=== PATIENT | female | born 2000 | race Caucasian/White ===

== ENCOUNTER 2022-05-01 18:33 | Emergency (ER) | payer OTHER ==
[2022-05-01 19:38] LABS: ESTIMATED GFR 131 mL/min (>60)
== END 2022-05-01 20:09 | disposition home or self-care (01) ==
LOC: FB.ED 18:33
DX: R10.10 Upper abdominal pain, unspecified (principal)
CPT/HCPCS: 36415; 80053; 81001; 83690; 85025; 99284

== ENCOUNTER 2024-08-12 22:51 | Emergency (ER) | payer OTHER ==
[2024-08-12] MEDS ORDERED: LORazepam 2 MG/ML SDV IVPUSH ONE (23:38)
[2024-08-13] MEDS: LORazepam 2 MG/ML SDV IVPUSH ONE (00:06)
[2024-08-13] MEDS: Sodium Chloride 0.9% 1,000 ML IV SCH ×2 (00:10→01:28)
[2024-08-13 00:23] LABS: BASOPHILS PERCENT AUTO 0.3 % (0.2-1.5); EOSINOPHILS PERCENT AUTO 0.5 % (0.6-8.1); HEMOGLOBIN 12.5 g/dL (11.4-15.5); LYMPHOCYTES ABSOLUTE AUTO 2.6 x10-3/uL (1.0-4.4); LYMPHOCYTES PERCENT AUTO 31.3 % (18.4-52.1); MEAN CORPUSCULAR HGB CONC 34.6 g/dL (31.9-34.8); MEAN CORPUSCULAR VOLUME 83.9 fL (76.7-100.5); MONOCYTES ABSOLUTE AUTO 0.6 x10-3/uL (0.3-1.0); MONOCYTES PERCENT AUTO 7.1 % (4.4-15.7); NEUTROPHILS PERCENT AUTO 60.8 % (30.8-76.2); PLATELET COUNT,PLT 238 x10(3)uL (151-488); RED BLOOD CELL COUNT 4.29 x10(6)uL (3.60-5.20); RED CELL DISTRIBUTION WIDTH 13.2 % (12.3-16.5); WHITE BLOOD CELL COUNT,WBC 8.2 x10-3/uL (3.0-10.3)
[2024-08-13 00:24] LABS: BLOOD UREA NITROGEN,BUN 15 mg/dL (7-18); BUN/CREATININE RATIO 18.8 (9-20); CALCIUM 8.9 mg/dL (8.6-10.2); CARBON DIOXIDE,CO2 25 mmol/L (21-32); CHLORIDE,CL 102 mmol/L (100-110); CREATININE 0.8 mg/dL (0.55-1.02); EST CRCL DRUG DOSING (CG) 102.39 mL/min; ESTIMATED GFR 106 mL/min (>60); GLUCOSE RANDOM 152 mg/dL (80-116); POTASSIUM,K 3.1 mmol/L (3.5-5.3); SODIUM,NA 138 mmol/L (135-145)
[2024-08-13] MEDS: Ondansetron 4 MG/2 ML SDV IVPUSH ONE (00:29)
[2024-08-13 00:37] LABS: A/G RATIO 1.2; ALANINE AMINOTRANSFERASE,ALT 19 U/L (12-36); ALBUMIN 4.1 g/dL (3.5-5.2); ALKALINE PHOSPHATASE 62 IU/L (56-112); ASPARTATE AMNIOTRANSFERASE,AST 16 IU/L (5-25); BILIRUBIN TOTAL 0.2 mg/dL (0.1-1.3); MAGNESIUM 1.7 mg/dL (1.8-2.5); PROTEIN TOTAL,TP 7.6 g/dL (6.0-8.0)
[2024-08-13 00:40] LABS: BILIRUBIN,URINE NEGATIVE (NEGATIVE); GLUCOSE,URINE NORMAL (NORMAL); KETONES,URINE NEGATIVE (NEGATIVE); LEUKOCYTE ESTERASE,URINE NEGATIVE (NEGATIVE); NITRITE,URINE NEGATIVE (NEGATIVE); OCCULT BLOOD,URINE MODERATE (NEGATIVE); PROTEIN,URINE NEGATIVE (NEGATIVE); UROBILINOGEN,URINE NORMAL (NEGATIVE)
[2024-08-13 00:41] LABS: APPEARANCE,URINE SLIGHTLY CLOUDY (CLEAR); COLOR,URINE YELLOW (YELLOW)
[2024-08-13 00:48] LABS: AMPHETAMINES SCREEN, URINE NEGATIVE (NEGATIVE); BARBITURATE SCREEN,URINE NEGATIVE (NEGATIVE); BENZODIAZEPINES SCREEN,URINE NEGATIVE (NEGATIVE); METHADONE SCREEN, URINE NEGATIVE (NEGATIVE); METHAMPHETAMINE SCREEN, URINE NEGATIVE (NEGATIVE); OXYCODONE SCREEN,URINE NEGATIVE (NEGATIVE); THC SCREEN,URINE POSITIVE (NEGATIVE)
[2024-08-13 00:49] LABS: BUPRENORPHINE SCREEN,URINE NEGATIVE (NEGATIVE)
[2024-08-13 00:52] LABS: RBC,URINE 0-5 (0-5); SQUAMOUS EPITHELIAL CELLS,UR MANY (NS,R,O); WBC,URINE 0-5 (0-5)
[2024-08-13 00:53] LABS: BACTERIA,URINE FEW (NS); MUCUS,URINE MODERATE (NS)
[2024-08-13] MEDS: Potassium Chloride 20 MEQ Tab.ER PO ONE (01:28)
[2024-08-13] MEDS: Magnesium Sulfate/Water Premix 2 GM in Premix Bag 1 BAG IV ONE (01:28)
== END 2024-08-13 04:00 | disposition home or self-care (01) ==
LOC: FB.ED 22:51
DX: F10.10 Alcohol abuse, uncomplicated (principal); F12.10 Cannabis abuse, uncomplicated; Z86.16 Personal history of COVID-19; Z79.899 Other long term (current) drug therapy
CPT/HCPCS: 36415; 80053; 80307; 81001; 81025; 83735; 84443; 85025; 93005; 96361; 96365; 96366; 96375; 99285; A9270; J2060; J3475; J7030

== ENCOUNTER 2025-04-15 17:27 | Emergency (ER) | payer OTHER ==
[2025-04-15] MEDS ORDERED: Sodium Chloride 0.9% 10 ML Syringe FLUSH PRN (17:38)
[2025-04-15] MEDS: Ondansetron 4 MG/2 ML SDV IVPUSH ONE (17:55)
[2025-04-15 18:01] LABS: BASOPHILS ABSOLUTE AUTO 0.0 x10-3/uL (0.0-0.1); BASOPHILS PERCENT AUTO 0.2 % (0.2-1.5); EOSINOPHILS ABSOLUTE AUTO 0.0 x10-3/uL (0.0-0.8); EOSINOPHILS PERCENT AUTO 0.3 % (0.6-8.1); LYMPHOCYTES ABSOLUTE AUTO 2.7 x10-3/uL (1.0-4.4); LYMPHOCYTES PERCENT AUTO 20.6 % (18.4-52.1); MEAN PLATELET VOLUME 9.8 fL (7.1-12.4); MONOCYTES ABSOLUTE AUTO 0.8 x10-3/uL (0.3-1.0); MONOCYTES PERCENT AUTO 6.2 % (4.4-15.7); NEUTROPHILS ABSOLUTE AUTO 9.4 x10-3/uL (1.5-6.3); NEUTROPHILS PERCENT AUTO 72.7 % (30.8-76.2); PLATELET COUNT,PLT 235 x10(3)uL (151-488); RED BLOOD CELL COUNT 4.53 x10(6)uL (3.60-5.20); RED CELL DISTRIBUTION WIDTH 12.7 % (12.3-16.5); WHITE BLOOD CELL COUNT,WBC 13.0 x10-3/uL (3.0-10.3)
[2025-04-15 18:02] LABS: BLOOD UREA NITROGEN,BUN 12 mg/dL (7-18); CARBON DIOXIDE,CO2 26 mmol/L (21-32); CHLORIDE,CL 102 mmol/L (100-110); CREATININE 0.7 mg/dL (0.55-1.02); ESTIMATED GFR 124 mL/min (>60); GLUCOSE RANDOM 101 mg/dL (80-116); POTASSIUM,K 3.6 mmol/L (3.5-5.3); SODIUM,NA 138 mmol/L (135-145)
[2025-04-15 18:20] LABS: GLUCOSE,URINE NORMAL (NORMAL); OCCULT BLOOD,URINE MODERATE (NEGATIVE)
[2025-04-15 18:21] LABS: APPEARANCE,URINE SLIGHTLY CLOUDY (CLEAR)
[2025-04-15 18:29] LABS: AMPHETAMINES SCREEN, URINE NEGATIVE (NEGATIVE); METHADONE SCREEN, URINE NEGATIVE (NEGATIVE); METHAMPHETAMINE SCREEN, URINE NEGATIVE (NEGATIVE); OXYCODONE SCREEN,URINE NEGATIVE (NEGATIVE)
[2025-04-15 18:30] LABS: BUPRENORPHINE SCREEN,URINE NEGATIVE (NEGATIVE); SQUAMOUS EPITHELIAL CELLS,UR FEW (NS,R,O)
== END 2025-04-15 19:05 | disposition home or self-care (01) ==
LOC: FB.ED 17:27
DX: O21.9 Vomiting of pregnancy, unspecified (principal); O99.281 Endocrine, nutritional and metabolic diseases complicating pregnancy, first trimester; E86.0 Dehydration; Z86.16 Personal history of COVID-19; Z88.8 Allergy status to other drugs, medicaments and biological substances; Z79.899 Other long term (current) drug therapy; Z3A.01 Less than 8 weeks gestation of pregnancy
CPT/HCPCS: 36415; 80048; 80307; 81001; 85025; 87086; 96361; 96374; 99284; J2405; J7030

== ENCOUNTER 2025-06-08 20:22 | Emergency (ER) | payer OTHER ==
[2025-06-08] MEDS ORDERED: Ondansetron 4 MG/2 ML SDV IVPUSH ONE (21:21)
[2025-06-08] MEDS ORDERED: diphenhydrAMINE 50 MG/ML SDV IVPUSH ONE (21:21)
[2025-06-08] MEDS ORDERED: Sodium Chloride 0.9% 10 ML Syringe FLUSH PRN (21:21)
[2025-06-08 21:42] LABS: BASOPHILS ABSOLUTE AUTO 0.0 x10-3/uL (0.0-0.1); BASOPHILS PERCENT AUTO 0.2 % (0.2-1.5); EOSINOPHILS ABSOLUTE AUTO 0.1 x10-3/uL (0.0-0.8); EOSINOPHILS PERCENT AUTO 0.7 % (0.6-8.1); LYMPHOCYTES ABSOLUTE AUTO 2.3 x10-3/uL (1.0-4.4); LYMPHOCYTES PERCENT AUTO 17.0 % (18.4-52.1); MEAN PLATELET VOLUME 10.2 fL (7.1-12.4); MONOCYTES ABSOLUTE AUTO 0.7 x10-3/uL (0.3-1.0); MONOCYTES PERCENT AUTO 5.1 % (4.4-15.7); NEUTROPHILS ABSOLUTE AUTO 10.2 x10-3/uL (1.5-6.3); NEUTROPHILS PERCENT AUTO 77.0 % (30.8-76.2); PLATELET COUNT,PLT 199 x10(3)uL (151-488); RED BLOOD CELL COUNT 3.57 x10(6)uL (3.60-5.20); RED CELL DISTRIBUTION WIDTH 13.9 % (12.3-16.5); WHITE BLOOD CELL COUNT,WBC 13.3 x10-3/uL (3.0-10.3)
[2025-06-08 21:48] LABS: BLOOD UREA NITROGEN,BUN 9 mg/dL (7-18); CARBON DIOXIDE,CO2 22 mmol/L (21-32); CHLORIDE,CL 104 mmol/L (100-110); CREATININE 0.5 mg/dL (0.55-1.02); EST CRCL DRUG DOSING (CG) 162.42 mL/min; ESTIMATED GFR 134 mL/min (>60); GLUCOSE RANDOM 102 mg/dL (80-116); POTASSIUM,K 3.1 mmol/L (3.5-5.3); SODIUM,NA 138 mmol/L (135-145)
[2025-06-08 21:52] LABS: A/G RATIO 1.0; ALANINE AMINOTRANSFERASE,ALT 25 U/L (12-36); ASPARTATE AMNIOTRANSFERASE,AST 29 IU/L (5-25); BILIRUBIN TOTAL 0.4 mg/dL (0.1-1.3); PROTEIN TOTAL,TP 6.7 g/dL (6.0-8.0)
[2025-06-08 21:52] LABS: GLUCOSE,URINE NORMAL (NORMAL); OCCULT BLOOD,URINE NEGATIVE (NEGATIVE)
[2025-06-08 21:56] LABS: APPEARANCE,URINE CLEAR (CLEAR)
[2025-06-08] MEDS: Iopamidol 755 Mg/ML 100 ML Bottle IV SCH (23:22)
== END 2025-06-09 00:51 | disposition home or self-care (01) ==
LOC: FB.ED 20:22
DX: O99.891 Other specified diseases and conditions complicating pregnancy (principal); R07.9 Chest pain, unspecified; R10.10 Upper abdominal pain, unspecified; Z3A.15 15 weeks gestation of pregnancy; Z88.8 Allergy status to other drugs, medicaments and biological substances; Z79.899 Other long term (current) drug therapy; Z86.16 Personal history of COVID-19
CPT/HCPCS: 36415; 71275; 80053; 81003; 83690; 83735; 85025; 85379; 86140; 87086; 93005; 93010; 99284; 99285; A9270-GY; Q9967